=== PATIENT | female | born 1995 | race Caucasian/White ===

== ENCOUNTER 2018-02-27 11:55 | Emergency (ER) | payer BC, OTHER ==
[~2018-02-27] VITALS: Ht 167.6 cm; Wt 95.9 kg
[2018-02-27 11:59] VITALS: Ht 167.6 cm; Wt 95.9 kg
[2018-02-27] MEDS ORDERED: ONDANSETRON (ODT) 4 MG TAB ODT STA (12:30)
[2018-02-27] MEDS ORDERED: FAMOTIDINE 20 MG TAB PO ONE (12:30)
[2018-02-27] MEDS ORDERED: FAMO-96 PO (13:10)
[2018-02-27] MEDS ORDERED: ONDA4TAB14 PO (13:10)
[2018-02-27 13:22] VITALS: BP 120/68; PULSE 69; RESP 20
--- NOTE | 2018-02-27 15:53 | ERD ---
ER Documentation Chief Complaint Chief Complaint Complains of abdominal pain and vomiting since last night HPI 22-year-old female patient with a past medical history of a pilonidal cyst pre sents the ED complaining of vomiting last night after drinking for cocktails. Patient reports that she usually does not drink alcohol, a few episodes of nonbilious nonbloody vomiting. Denies any fever, chills, abdominal pain, chest pain, shortness of breath, neck stiffness, diarrhea. Reports that her last menstruation, started last night. ROS All systems reviewed and are negative except as per history of present illness. Medications Home Meds Active Scripts Ondansetron (Ondansetron Odt) 4 Mg Tab.rapdis, 4 MG PO Q6H PRN for NAUSEA AND/OR VOMITING, #10 TAB Prov:ALANNA LEPE PA-C 02/27/18 Famotidine* (Pepcid*) 20 Mg Tablet, 20 MG PO BID, #20 TAB Prov:ALANNA LEPE PA-C 02/27/18 Allergies Allergies: Coded Allergies: No Known Allergy (Unverified , 02/27/18) PMhx/Soc Medical and Surgical Hx: pt denies Medical Hx History of Surgery: Yes (Cyst removal in between buttocks) Anesthesia Reaction: No Hx Alcohol Use: Yes (social) Hx Substance Use: Yes (Marijuana) Hx Tobacco Use: No Smoking Status: Never smoker FmHx Family History: No diabetes, No coronary disease Physical Exam Vitals Vital Signs Date Temp Pulse Resp B/P (MAP) Pulse Ox O2 O2 Flow FiO2 Time Delivery Rate 02/27/18 98.3 69 20 120/68 98 Room Air 13:22 (85) 02/27/18 98.0 73 20 124/62 97 11:59 (82) Physical Exam Const: Fni-zlp-wihownggh, well-nourished. In no acute distress. Head: Atraumatic, normocephalic Eyes: Normal Conjunctiva without injection. No purulent discharge. ENT: Normal external ear, nose. Moist oropharynx without tonsillar exudates. No n-erythematous pharynx. Uvula midline. No drooling. No trismus. Neck: No cervical midline tenderness. Full range of motion. No meningismus. No cervical lymphadenopathy. No JVD. Resp: Clear to auscultation bilaterally. 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 No accessory muscle use. No retractions. Cardio: Regular rate and rhythm. No murmurs, rubs or gallops. Abd: Soft, nontender, non distended. Normal bowel sounds. No palpable masses. No rebound tenderness. No guarding. Negative McBurney's point. Negative psoas sign. Negative obturator sign. Skin: No petechiae or rashes Back: No midline tenderness. No CVA tenderness. Ext: No cyanosis, or edema. Neur: Awake and alert. Normal gait. Normal coordination. Psych: Normal Mood and Affect Results 24 hrs Current Medications Medications Dose Sig/Brody Start Time Status Last (Trade) Ordered Route PRN Stop Time Admin Dose Reason Admin Famotidine 20 mg ONCE ONCE 02/27/18 DC 02/27/18 (Pepcid) PO 12:30 12:36 02/27/18 12:31 Ondansetron 4 mg ONCE STAT 02/27/18 DC 02/27/18 HCl (Zofran ODT 12:30 12:36 Odt) 02/27/18 12:31 Procedures/MDM 22-year-old female patient with no significant past medical history presents to the ED complaining of pain that started last night after drinking alcohol. Patient is afebrile and nontoxic-appearing. She was given Zofran, famotidine here in the ED with improvement of her symptoms. Vomiting likely secondary to alcohol intoxication. Low suspicion for delirium tremens, alcohol withdrawal, ectopic , ovarian torsion, gastritis, GERD, peptic ulcer disease, cholecystitis, choledocholithiasis, cholangitis, pancreatitis, appendicitis, bowel obstruction, ileus, volvulus, nephrolithiasis, pyelonephritis, hepatitis, perforated viscus, diverticulitis, strangulated/incarcerated hernia, DKA, acute abdomen, mesenteric ischemia or other emergent conditions. Diagnosis: Nausea and Vomiting Discharge medications: Zofran, famotidine Follow up with primary care physician in 1-2 days. Instructed patient to return to the ED sooner for any worsening symptoms. Patient's questions were answered. Patient is hemodynamically stable. Patient understood and agreed with discharge plan. Patient discharged stable. Disclaimer: Inadvertent spelling and grammatical errors are likely due to EHR/dictation software use and do not reflect on the overall quality of patient care. Also, please note that the electronic time recorded on this note does not necessarily reflect the actual time of the patient encounter. Departure Diagnosis: Primary Impression: Nausea and vomiting Vomiting type: unspecified Vomiting Intractability: unspecified Qualified Codes: R11.2 - Nausea with vomiting, unspecified Condition: Stable Patient Instructions: Alcohol Intoxication, Vomiting (5Y-Adult) Referrals: [facility] YOU HAVE RECEIVED A MEDICAL SCREENING EXAM AND THE RESULTS INDICATE THAT YOU DO NOT HAVE A CONDITION THAT REQUIRES URGENT TREATMENT IN THE EMERGENCY DEPARTMENT. FURTHER EVALUATION AND TREATMENT OF YOUR CONDITION CAN WAIT UNTIL YOU ARE SEEN IN YOUR DOCTORS OFFICE WITHIN THE NEXT 1-2 DAYS. IT IS YOUR RESPONSIBILITY TO MAKE AN APPOINTMENT FOR FOLOW-UP CARE. IF YOU HAVE A PRIMARY DOCTOR --you should call your primary doctor and schedule an appointment IF YOU DO NOT HAVE A PRIMARY DOCTOR YOU CAN CALL OUR PHYSICIAN REFERRAL HOTLINE AT IF YOU CAN NOT AFFORD TO SEE A PHYSICIAN YOU CAN CHOSE FROM THE FOLLOWING [facility] [address] [facility] [address] [facility] [place] [address] [facility] [address] [facility] [address] [facility]. [facility] [address] [facility]. [facility] YOU HAVE RECEIVED A MEDICAL SCREENING EXAM AND THE RESULTS INDICATE THAT YOU DO NOT HAVE A CONDITION THAT REQUIRES URGENT TREATMENT IN THE EMERGENCY DEPARTMENT. FURTHER EVALUATION AND TREATMENT OF YOUR CONDITION CAN WAIT UNTIL YOU ARE SEEN IN YOUR DOCTORS OFFICE WITHIN THE NEXT 1-2 DAYS. IT IS YOUR RESPONSIBILITY TO MAKE AN APPOINTMENT FOR FOLOW-UP CARE. IF YOU HAVE A PRIMARY DOCTOR --you should call your primary doctor and schedule and appointment IF YOU DO NOT HAVE A PRIMARY DOCTOR YOU CAN CALL OUR PHYSICIAN REFERRAL HOTLINE AT . IF YOU CAN NOT AFFORD TO SEE A PHYSICIAN YOU CAN CHOSE FROM THE FOLLOWING [facility] INSTITUTIONS: [facility] [address] [place] [address] [facility] [address] [place] [address] [facility] [address] [place] [address] [facility] URGENT CARE/SPECIALTIES Additional Instructions: Call your primary care doctor TOMORROW for an appointment during the next 2-3 days.See the doctor sooner or return here if your condition worsens before your appointment time. ALANNA LEPE PA-C Feb 27, 2018 15:53
== END 2018-02-27 13:24 | disposition home or self-care (01) ==
LOC: FTE 11:55
DX: R11.2 Nausea with vomiting, unspecified (principal)
CPT/HCPCS: 99283